=== PATIENT | female | born 1965 | race Hispanic/Latino ===

== ENCOUNTER 2021-01-27 08:50 | Emergency (ER) | payer OTHER ==
[~2021-01-27] VITALS: Ht 170.2 cm; Wt 104.3 kg
[2021-01-27 09:11] LABS: BASOPHILS % (AUTO) 0.5 % (0.0-5.0); EOSINOPHILS % (AUTO) 1.5 % (0.0-8.0); HEMATOCRIT 44.1 % (36-48); MEAN CORPUSCULAR HEMOGLOBIN 29.2 pg (27.0-33.0); MEAN CORPUSCULAR HGB CONC 35.4 g/dL (32.0-36.0); MEAN CORPUSCULAR VOLUME 82.4 fL (79-99); NEUTROPHILS % (AUTO) 60.8 % (40.0-77.0); PLATELET COUNT (AUTO) 249 K/uL (130-400); RED BLOOD CELL COUNT(AUTO) 5.35 MIL/uL (4.00-5.50); WHITE BLOOD COUNT (AUTO) 9.5 K/uL (4.8-10.8)
[2021-01-27 09:23] LABS: CREATININE 0.6 mg/dL (0.5-1.5); POTASSIUM 4.2 mmol/L (3.5-5.1)
[2021-01-27 09:27] LABS: ALBUMIN 3.9 g/dL (3.5-5.0); BILIRUBIN,TOTAL 0.5 mg/dL (0.2-1.0); TOTAL PROTEIN, SERUM 7.6 g/dL (6.0-8.3)
[2021-01-27] MEDS ORDERED: ONDANSETRON 4MG INJ ONE (10:20)
[2021-01-27] MEDS ORDERED: MORPHINE 4 MG SYG ONE (10:21)
[2021-01-27 10:47] LABS: APPEARANCE,URINE Clear (CLEAR); BILIRUBIN,URINE Negative (NEGATIVE); COLOR,URINE Dark Yellow (YELLOW); GLUCOSE, URINE (UA) 250 mg/dL (NEGATIVE); KETONES,URINE 15 mg/dL (NEGATIVE); LEUKOCYTE ESTERASE ,URINE Small (NEGATIVE); NITRATE,URINE Negative (NEGATIVE); OCCULT BLOOD,URINE Negative (NEGATIVE); PH,URINE 5.5 (5.0-8.0); PROTEIN,URINE Negative (NEGATIVE)
[2021-01-27 11:13] LABS: BACTERIA,URINE Rare /HPF (None Seen); CALCIUM OXALATE CRYSTALS,UR Few /LPF (None Seen); MUCUS,URINE Few LPF (None Seen); RBC,URINE None Seen /HPF (0-1); SQUAMOUS EPITHELIAL CELL,UR Few /HPF (0-2); WBC,URINE 0-1 /HPF (0-1)
[2021-01-27] MEDS ORDERED: MORPHINE 4 MG SYG IV ONE ×2 (11:30→12:30)
[2021-01-27] MEDS ORDERED: ONDANSETRON 4MG INJ IVP ONE (11:30)
[2021-01-27] MEDS ORDERED: TRAM-355 PO (13:18)
[2021-01-27] MEDS ORDERED: DICY20TA2 PO (13:18)
[2021-01-27 14:40] VITALS: BP 133/82
== END 2021-01-27 14:43 | disposition home or self-care (01) ==
LOC: EDH 08:50
DX: K80.50 Calculus of bile duct without cholangitis or cholecystitis without obstruction (principal); E11.9 Type 2 diabetes mellitus without complications; I10 Essential (primary) hypertension; Z79.899 Other long term (current) drug therapy
CPT/HCPCS: 36415; 71045; 76705; 80053; 81001; 82150; 83690; 85025; 96374; 96375; 96376; 99285; J2270 ×2; J2405